=== PATIENT | female | born 2000 | race African-American/Black ===

== ENCOUNTER 2025-04-24 19:23 | Emergency (ER) | payer MEDICAID ==
[~2025-04-24] VITALS: Ht 162.6 cm; Wt 45.4 kg
[2025-04-24 20:04] VITALS: TEMP 98.3
[2025-04-24] MEDS: IPRATROPIUM NEB FS 0.5 MG/2.5 ML AMPUL.NEB NEB ONE (20:08)
[2025-04-24] MEDS: ALBUTEROL FS 2.5 MG/3 ML VIAL.NEB CONTNEB ONE (20:08)
[2025-04-24] MEDS ORDERED: IPRATROPIUM NEB FS 0.5 MG/2.5 ML AMPUL.NEB ONE (20:09)
[2025-04-24] MEDS ORDERED: ALBUTEROL FS 2.5 MG/3 ML VIAL.NEB ONE (20:09)
[2025-04-24 20:13] VITALS: O2SAT 98
[2025-04-24] MEDS ORDERED: predniSONE 20 MG TABLET ONE (20:46)
[2025-04-24] MEDS ORDERED: KETOROLAC TROMETHAMINE 15 MG/ML VIAL ONE (20:46)
[2025-04-24 21:09] VITALS: O2SAT 100
[2025-04-24] MEDS ORDERED: PRED50TA PO (21:18)
[2025-04-24] MEDS ORDERED: ALBU8.5H8 INH (21:18)
[2025-04-24] MEDS: predniSONE 20 MG TABLET PO ONE (21:22)
[2025-04-24] MEDS: KETOROLAC TROMETHAMINE 15 MG/ML VIAL IM ONE (21:23)
[2025-04-24 21:41] VITALS: BP 112/72; O2SAT 98
== END 2025-04-24 21:42 | disposition home or self-care (01) ==
LOC: ER 19:26
DX: R06.02 Shortness of breath (principal); R07.89 Other chest pain; F17.200 Nicotine dependence, unspecified, uncomplicated; Z79.52 Long term (current) use of systemic steroids; Z88.1 Allergy status to other antibiotic agents; Z88.2 Allergy status to sulfonamides; Z20.822 Contact with and (suspected) exposure to COVID-19
CPT/HCPCS: 99285; 71045; 87426; 96372; 93005; 94644; J1885; J7512